=== PATIENT | female | born 1975 | race Caucasian/White ===

== ENCOUNTER 2019-08-14 17:04 | Observation (INO) ==
[2019-08-14] MEDS ORDERED: *HR* Promethazine 25 MG/ML VIAL IVP ONE (19:33)
[2019-08-14] MEDS ORDERED: levETIRAcetam 1,000 MG in 0.9 % Sodium Chloride 100 ML IVPB ONE (20:55)
[2019-08-14] MEDS ORDERED: Naloxone 0.4 MG/ML INJ IVP PRN (23:32)
[2019-08-14] MEDS ORDERED: *HR* Promethazine 25 MG/ML VIAL IVP PRN (23:32)
[2019-08-14] MEDS ORDERED: D5% in Water 1,000 ML IVC PRN (23:35)
[2019-08-14] MEDS ORDERED: Dextrose Gel 15 GM/37.5 ML TUBE PO PRN ×2 (23:35)
[2019-08-14] MEDS ORDERED: *HR* Dextrose 50 % in Water (Syg) 50 ML SYRINGE IVP PRN (23:35)
[2019-08-15] MEDS: 0.9 % Sodium Chloride 1,000 ML IVC SCH ×2 (00:33→08:44)
[2019-08-15 02:23] LABS: Hematocrit 41.7 % (35.3-44.9); Hemoglobin 14.1 g/dL (11.5-15.4); Mean Corpuscular HGB Conc 33.8 g/dL (31.6-35.5); Mean Corpuscular Hemoglobin 30.6 pg (28.0-33.3); Mean Corpuscular Volume 90.5 fL (83.0-100.0); Mean Platelet Volume 8.9 fL (9.4-12.4); Platelet Count 252 K/mcL (140-400); Red Blood Count 4.61 M/mcL (3.82-4.97); Red Cell Distribution Width 12.3 % (11.5-14.5)
[2019-08-15 02:40] LABS: BUN/Creatinine Ratio 9 (6-26); Blood Urea Nitrogen 8 mg/dL (6-20); Calcium 9.3 mg/dL (8.6-10.3); Carbon Dioxide 20 mEq/L (23-29); Chloride 109 mEq/L (98-107); Glucose 92 mg/dL (70-105); Magnesium 2.2 mg/dL (1.6-2.6); Osmolality,Calculated 284 (280-300); Potassium 3.5 mEq/L (3.5-5.1); Sodium 138 mEq/L (136-145); eGFR For African Americans > 60 (> 60); eGFR For Non-African Americans > 60 (> 60)
[2019-08-15 08:17] LABS: Amphetamine Screen,Urine Negative ng/mL (Cutoff=1000); Barbiturate Screen,Urine Negative ng/mL (Cutoff=200); Benzodiazepines Screen,Urine Negative ng/mL (Cutoff=200); Cannabinoid Screen,Urine Negative ng/mL (Cutoff = 50); Cocaine Screen,Urine Negative ng/mL (Cutoff= 300); Opiate Screen,Urine Negative ng/mL (Cutoff=300); Phencyclidine Screen,Urine Negative ng/mL (Cutoff=25)
[2019-08-15] MEDS: Acetaminophen 325 MG TABLET PO PRN ×2 (08:43→21:03)
[2019-08-15] MEDS: Insulin LISPRO 300 UNITS/3 ML VIAL SQ SCH ×3 (09:04→16:53)
[2019-08-15] MEDS: *HR* LORazepam 1 MG TABLET PO SCH ×3 (12:57→21:03)
[2019-08-15] MEDS: OLANZapine 10 MG TAB.RAPDIS PO SCH ×2 (12:57→13:17)
[2019-08-15] MEDS ORDERED: *HR* LORazepam 1 MG TABLET PO SCH (15:00)
[2019-08-15 15:31] LABS: Estimated Average Glucose 111 mg/dl
[2019-08-15] MEDS ORDERED: lamoTRIgine 100 MG TABLET PO SCH (21:00)
[2019-08-15] MEDS ORDERED: Insulin LISPRO 300 UNITS/3 ML VIAL SQ SCH ×2 (21:00)
[2019-08-15] MEDS ORDERED: OLANZapine 10 MG TAB.RAPDIS PO SCH (21:00)
[2019-08-16 07:30] VITALS: BP 106/63
[2019-08-16] MEDS ORDERED: levETIRAcetam 250 MG TABLET PO SCH (07:53)
[2019-08-16] MEDS: Insulin LISPRO 300 UNITS/3 ML VIAL SQ SCH (08:01)
[2019-08-16] MEDS: *HR* LORazepam 1 MG TABLET PO SCH (08:14)
== END 2019-08-16 11:58 | disposition home or self-care (01) ==
LOC: 3BNU 17:04 → EMEROOARM 17:04 → SUATTDRO 20:54 → 3BNU 21:34
PROVIDERS: ADMIT Family Medicine; ATTEND Internal Medicine